=== PATIENT | male | born 1965 | race Caucasian/White ===

== ENCOUNTER → 2020-06-29 13:17 | Outpatient (CLI) | payer OTHER, SELFPAY ==
[2018-06-16 13:01] VITALS: BMI 27.5
--- NOTE | 2020-06-29 13:22 | RAD_ITS ---
STUDY: X-RAY - CERVICAL SPINE REASON FOR EXAM: Male, 55 years old. neck pain, right shoulder pain TECHNIQUE: 5 view(s) of the cervical spine were obtained. COMPARISON: None FINDINGS: Normal anterior atlantoaxial articulation. Normal odontoid process. Normal cervical lordosis. Normal vertebral bodies and endplates. Mild narrowing of the disc at C5-C6, otherwise normal disc space heights. Normal visualized intervertebral neuroforamina. The soft tissue structures are unremarkable. There is no demonstrated fracture of the cervical spine. RAD/Cerv Spine 4 or 5 Views IMPRESSION: Mild degenerative disc disease at C5-C6, otherwise normal x-ray examination of the visualized cervical spine. Electronically Signed: Josh Pisano MD at 23:13 EST , Service support ,
== END ==
PROVIDERS: PCP Family Medicine; Referring Provider Family Medicine; Visit Provider Family Medicine
DX: M54.2 Cervicalgia (principal)
CPT/HCPCS: 72050

== ENCOUNTER → 2020-12-12 07:35 | Outpatient (CLI) | payer OTHER, SELFPAY ==
[2018-06-16 13:01] VITALS: BMI 27.5
[2020-12-12 10:32] LABS: Absolute Lymphocyte Count 1.39 X10^3/uL (0.83-4.51); Absolute Neutrophil Count 3.7 X10^3/uL (2.0-7.7); Basophil# 0.03 X10^3/uL; Basophil% 0.5 % (0-1); Eosinophils% 3.3 % (0-5); Hematocrit 45.6 % (40-54); Hemoglobin 14.6 g/dL (13.0-16.5); Lymphocyte # 1.39 X10^3/ul (0.83-4.51); Lymphocyte % 23.2 % (19-41); Mean Corpuscular Hgb 29.7 pg (27.0-32.0); Mean Corpuscular Volume 92.7 fL (80-94); Monocyte# 0.61 X10^3/uL; Monocyte% 10.2 % (0-10); NRBC Flagged by Analyzer 0 % (0-5); Neutrophil # 3.73 X10^3/uL (2.7-7.7); Neutrophil % 62.5 % (47-70); Platelet Count 252 K/mm3 (150-450); RBC Distribution Width CV 13.2 % (11.6-14.6); RBC Distribution Width SD 44.5 fl (35.1-43.9); Red Blood Count 4.92 M/mm3 (4.6-6.2)
[2020-12-12 10:52] LABS: ALB/GLOB Ratio 1.1 RATIO (0.9-2.4); AST(SGOT) 14 U/L (15-37); Alanine Aminotransfer ALT/SGPT 28 U/L (16-61); Albumin, Serum 3.7 g/dL (3.2-5.0); Alkaline Phosphatase 62 U/L (45-117); Anion Gap 4 (5-15); BUN 18 mg/dL (7-18); Calcium,Total 8.6 mg/dL (8.5-10.1); Chloride 104 mmol/L (98-107); Cholesterol 179 mg/dL (200); Creatinine, Serum 1.06 mg/dL (0.70-1.30); EST Glomerular Filtration Rate 76 mL/min (>60); Est Glom Filt Rate - Afr Amer 92 mL/min (>60); Globulin 3.4 g/dL (2.2-4.2); Glucose 93 mg/dL (74-106); High Density Lipoprotein 50 mg/dL; PSA,Total - Annual Screen 1.13 ng/mL (0.00-4.00); Potassium 4.3 mmol/L (3.5-5.1); Protein, Total 7.1 g/dL (6.4-8.2); Sodium Level 138 mmol/L (136-145); Triglycerides 88 mg/dL; Very Low Density Lipoprotein 18 mg/dL (5-40)
== END ==
LOC: MTLAB 07:36
PROVIDERS: PCP Family Medicine; Referring Provider Family Medicine; Visit Provider Family Medicine
DX: R53.83 Other fatigue (principal); Z13.220 Encounter for screening for lipoid disorders; Z12.5 Encounter for screening for malignant neoplasm of prostate
CPT/HCPCS: 36415; 80053; 80061; 82306; 84153; 84403; 84443; 85025; G0103

== ENCOUNTER → 2023-05-22 | Outpatient (CLI) | payer OTHER, SELFPAY ==
[2023-05-22 15:32] LABS: PSA,Total - Annual Screen 1.62 ng/mL (0.00-4.00)
== END | disposition home or self-care (01) ==
LOC: MTLAB 13:33
PROVIDERS: PCP Family Medicine; Referring Provider Family Medicine; Visit Provider Family Medicine
DX: Z12.5 Encounter for screening for malignant neoplasm of prostate (principal)
CPT/HCPCS: 36415; 84153; G0103

== ENCOUNTER → 2023-11-25 | Outpatient (CLI) | payer OTHER, SELFPAY ==
--- NOTE | 2023-11-25 13:37 | RAD_ITS ---
STUDY: X-RAY - CERVICAL SPINE REASON FOR EXAM: Male, 58 years old. pain TECHNIQUE: 5 view(s) of the cervical spine were obtained. COMPARISON: 06/29/2020 FINDINGS: Normal anterior atlantoaxial articulation. Normal odontoid process. Normal cervical lordosis. Normal vertebral bodies and endplates. Focal disc space narrowing and osteophyte formation at C5/C6 consistent with degenerative disc disease. Normal visualized intervertebral neuroforamina. The soft tissue structures are unremarkable. RAD/Cerv Spine 4 or 5 Views IMPRESSION: Focal degenerative disc disease at C5/C6. MRI may be useful. Electronically Signed: Manohar Salazar MD at 9:48 EDT ,
== END | disposition home or self-care (01) ==
LOC: MTRAD 13:37
PROVIDERS: PCP Family Medicine; Referring Provider Family Medicine; Visit Provider Family Medicine
DX: M50.30 Other cervical disc degeneration, unspecified cervical region (principal)
CPT/HCPCS: 72050